=== PATIENT | male | born 1950 | race Caucasian/White ===

== ENCOUNTER 2018-09-13 10:07 | Emergency (ER) | payer OTHER, BC ==
[~2018-09-13] VITALS: Ht 180.3 cm; Wt 95.3 kg
[~2018-09-13 10:07] MED LIST: ALLEGRA ALLERG180 MG PO; KEFLEX500 MG PO; LISINOPRIL5 MG PO; NORVASC5 MG PO; ZOCOR40 MG PO
[2018-09-13 10:37] LABS: ABSOLUTE NEUTROPHILS 11.5 thou/uL (1.4-8.2); BASOPHILS 0.2 % (0.0-2.0); EOSINOPHILS 0.5 % (0.0-3.0); HEMATOCRIT 42.1 % (42.0-52.0); HEMOGLOBIN 14.2 gm/dL (14.0-18.0); LYMPHOCYTES 8.2 % (24.0-44.0); MCH 30.3 pg (26.0-34.0); MCHC 33.6 g/dL (28.0-37.0); MCV 90.2 fL (80.0-100.0); MONOCYTES 6.9 % (1.0-8.0); PLATELET COUNT 214 thou/uL (150-400); POLYS 84.2 % (36.0-66.0); RBC 4.67 mil/uL (4.50-6.00); RDW 15.2 % (10.5-14.5); WBC 13.6 thou/uL (4.0-11.0)
[2018-09-13 10:46] LABS: CALCIUM 8.7 mg/dL (8.5-10.1); CREATININE 1.4 mg/dL (0.7-1.3); POTASSIUM 4.5 mmol/L (3.5-5.1)
[2018-09-13 10:52] LABS: ALBUMIN 3.8 g/dL (3.4-5.0); TOTAL BILIRUBIN 0.7 mg/dL (<0.1-1.0); TOTAL PROTEIN 7.4 g/dL (6.4-8.2)
[2018-09-13 10:56] LABS: APTT 27.1 Seconds (24.5-32.8)
[2018-09-13] MEDS ORDERED: ANUSOL-HC25 MG RECTAL (13:26)
[2018-09-13] MEDS ORDERED: LEVSIN0.125 MG PO (13:37)
[2018-09-13] MEDS ORDERED: ACETAMINOPHEN-1 EAC1 PO (13:37)
[2018-09-13 13:47] VITALS: BP 121/72
== END 2018-09-13 13:48 | disposition home or self-care (01) ==
LOC: ER 10:07
PROVIDERS: Emergency Medicine
DX: K92.2 Gastrointestinal hemorrhage, unspecified (principal); K91.840 Postprocedural hemorrhage of a digestive system organ or structure following a digestive system procedure; I10 Essential (primary) hypertension; Z88.8 Allergy status to other drugs, medicaments and biological substances; Z90.89 Acquired absence of other organs; Z86.2 Personal history of diseases of the blood and blood-forming organs and certain disorders involving the immune mechanism; Y83.8 Other surgical procedures as the cause of abnormal reaction of the patient, or of later complication, without mention of misadventure at the time of the procedure; Y92.89 Other specified places as the place of occurrence of the external cause